=== PATIENT | female | born 1945 | race Caucasian/White ===

== ENCOUNTER 2016-10-27 20:56 | Emergency (ER) | payer MEDICARE ==
[~2016-10-27] VITALS: Ht 167.6 cm; Wt 72.7 kg
[2016-10-27 21:09] VITALS: BP 134/79; PULSE 69; RESP 16; O2SAT 96
--- NOTE | 2016-10-27 21:24 | ED.REPORT ---
HPI-Eye Problem Date of Service Oct 27, 2016 ED Provider: Jerilyn Santamaria MD Pt is a 71 y.o. female with a hx of migraine who presents to the ED c/o vision changes described as flashing lights onset 193. Pt states that the flashing lights are in her field of vision when she looks to her left, the same with eyes open and closed. Pt also has chronic migraines and woke up this morning with a migraine, located in her temporal region rated at a 4. Pt denies a loss of vision, fever, chills, nausea, and vomiting. Pt denies ever experiencing vision changes in relation to her migraines. Nursing Notes Stated Complaint: DETACHED RETINA Chief Complaint: Eye Nursing Notes Reviewed: Yes Allergies: Coded Allergies: Penicillins (Verified Allergy, Unknown, 10/27/16) Sulfa (Sulfonamide Antibiotics) (Verified Allergy, Unknown, 10/27/16) tetracycline (Verified Allergy, Unknown, Nausea,Vomiting, 10/27/16) General Time Seen by MD: 21:24 Chief Complaint Flashing light Hx Obtained From: Patient Arrived By: Walk-in Sudden in Onset?: Yes Onset Occurred: 1 - 4 hours ago Symptom Duration: Since onset Quality: Painful Severity: Current: Pain level 4 out of 10 Recent Healthcare: No recent doctor visit, No recent hospitalization Similar Sx Previous: No Past Medical History Past Medical History Reports: Migraines Social History Other Social History: Good social support, Ambulatory Status Independent Review of Systems Constitutional: Denies: Chills, Fever Eyes: Denies: Visual loss bilateral Neurologic: Reports: Headache, Vision change (Flashes) Complete sys rev & neg: except as marked. GI: Denies: Nausea, Vomiting Physical Exam Initial Vital Signs Vital Signs (First) Date Time Temp Pulse Resp B/P Pulse Ox O2 Delivery O2 Flow Rate FiO2 10/27/16 21:09 36.2 69 16 134/79 96 Room Air Initial VS: Reviewed, Vital signs normal Respiratory: Breath sounds normal, Clear to auscultation, No respiratory distress Cardiovascular: Regular rate & rhythm, Heart sounds normal, Intact distal pulses Abdomen / GI: No distention Extremities: Vascular intact, Neuro intact Skin: Warm, Dry, No cyanosis Psychiatric: Mood/affect normal, Behavior normal, Normal thought content Head / Eyes: Atraumatic, Normocephalic, PERRL, EOMI, Conjunctiva NL, Cornea clear What can be seen of retina is normal. General/Constitutional: Awake, Alert, No acute distress, Well appearing, Well developed, Well hydrated, Well nourished Neurologic: Oriented X3, Speech NL, No motor deficits, No sensory deficits, CN II - XII intact Interpretation & Diagnostics CT Head Interpretation IMPRESSION: Normal head CT. Radiologist: Dread Pizarro M.D. 10/27/2016 - 10:09:16 PM PST Re-Eval/Medical Decision Med Decision/Clinical Course The patient presents with some new visual changes and was concern for retinal detachment, this is unlikely given her description and exam findings. I was concerned for possible migraine variant however the patient refused treatment for headache. In speaking with ophthalmology and they stated this could be consistent with a vitreous detachment. The patient will follow-up with ophthalmology tomorrow, she did not want any further treatment. She had a lot of CT scan this is obtained due to a change in her symptoms, she has never had this symptom before and she has a history of frequent headaches and does at times wake with headache. Source of Hx: Old records Re-Evaluation/Progress : Time of Eval: 22:10 Re-Evaluation/Progress Note: Pt rechecked. Discussed consult with Dr. Mak. Pt is declining pain medications. Consultation : Referral / Consult Name: Geeta Mak MD Call Returned at: 21:46 [facility] Hand: Will see patient, Will see in office Note: Discussed pt condition. Will see pt in office tomorrow. Counseled Regarding: Diagnosis, Lab results, Need for follow-up, When/why to return to ED Discharge & Departure Primary Impression: Headache Headache type: tension-type Headache chronicity pattern: chronic headache Intractability: not intractable Qualified Code: G44.229 - Chronic tension- type headache, not intractable Additional Impression: Visual changes Disposition: Home Discharge Condition All VS Reviewed: Yes Condition: Stable Additional Instructions: Your symptoms are not concerning for retinal detachment. Vitreous detachment is possible and you should call Dr. Geeta Mak at [facility] in [facility] tomorrow morning for a same day appointment. Seek care if you experience vision loss or any new or worsening symptoms. Referrals: Geeta Mak MD 1 Day Scribe Attestation Portions of this note were transcribed by Asrenio Buck. IDr. Santamaria personally performed the history, physical exam and medical decision-making; I reviewed and confirmed the accuracy of the information in the transcribed note. Signed by: Leland Kauffman, 10/27/2016 and 2240. copies to: Geeta Mak MD, Jena M MD Oct 27, 2016 21:24 ARSENIO BUCK Oct 27, 2016 21:41
[2016-10-27] MEDS ORDERED: Ketorolac 15 mg/mL Inj IVPUSH ONE (21:50)
[2016-10-27] MEDS ORDERED: ProchlorPERazine 5 mg/mL 2 mL Inj IVPUSH ONE (21:50)
[2016-10-27] MEDS ORDERED: 0.9% Sodium Chloride 500 ML IV ONE (21:50)
[2016-10-27 22:51] VITALS: BP 134/79; PULSE 69; RESP 16; O2SAT 96
--- NOTE | 2016-10-28 08:00 | DRSVH ---
PROCEDURE: CT BRAIN WITHOUT CONTRAST ([id number]) INDICATIONS: new symptoms with headache TECHNIQUE: Noncontrast 4.5 mm thick angled axial sections acquired from the foramen magnum to the vertex, with c oronal reformats. COMPARISON: None. FINDINGS: Image quality: Excellent. CSF spaces: Basal cisterns are patent. No extra-axial fluid collections. The ventricles are symmet kita in size and shape. Brain: No intracranial bleeds or masses. There is cerebral volume loss for age, with resultant vent ricular and sulcal prominence. There are periventricular and deep white matter chronic small vessel ischemic changes. There is intracranial internal carotid artery atherosclerosis. Skull and face: Calvarium and visualized facial bones appear intact, without suspicious lesions. Sinuses: Visualized sinuses and mastoids are clear. IMPRESSION: Negative head CT. Dictated by: Ady Enrique M.D. on 10/28/2016 at 7:58 Approved by: Ady Enrique M.D. on 10/28/2016 at 7:58
== END 2016-10-27 22:51 | disposition home or self-care (01) ==
LOC: SED 20:56
DX: G44.229 Chronic tension-type headache, not intractable (principal); H53.9 Unspecified visual disturbance; Z88.0 Allergy status to penicillin; Z88.2 Allergy status to sulfonamides; Z88.1 Allergy status to other antibiotic agents